=== PATIENT | male | born 1965 | race Caucasian/White ===

== ENCOUNTER 2023-05-18 06:40 | Emergency (ER) | payer OTHER, SELFPAY ==
[2023-05-18 06:45] VITALS: BP 164/75; PULSE 89; RESP 16; TEMP 36.4; O2SAT 97
--- NOTE | 2023-05-18 07:23 | XR_ITS ---
[facility] [id number] Patient Name: TANA CHRIS MRN: [id number] date: 1965 Sex: M Assigned Patient Location: ER Current Patient Location: ER Accession/Order Number: [id number] Exam Date: 05/18/2023 07:33 Report Date: 05/18/2023 08:03 At the request of: YULIA FLORES Procedure: XR femur RT 2V EXAM: Right femur HISTORY: . pain, twisted . COMPARISON: None. TECHNIQUE: 4 views FINDINGS: No fracture or bony destructive process is noted involving the right femur. Surrounding soft tissues are unremarkable. XR/XR femur RT 2V IMPRESSION: Negative right femur. Electronically authenticated by: KRIS BREAUX Date: 05/18/2023 08:03
--- NOTE | 2023-05-18 07:23 | XR_ITS ---
The [address] [address] Patient Name: TANA CHRIS MRN: [id number] date: 1965 Sex: M Assigned Patient Location: ER Current Patient Location: ER Accession/Order Number: [id number] Exam Date: 05/18/2023 07:33 Report Date: 05/18/2023 08:02 At the request of: YULIA FLORES Procedure: XR knee RT 3V EXAM: Right knee HISTORY: . twisted, pain . COMPARISON: None. TECHNIQUE: 3 views FINDINGS: No fracture or dislocation of the right knee is noted. Small spurs are noted involving the knee joint as well as the patellofemoral joint. Surrounding soft tissues are unremarkable. XR/XR knee RT 3V IMPRESSION: 1. No acute bony abnormality of the right knee. 2. Early arthritic changes of the right knee. Electronically authenticated by: KRIS BREAUX Date: 05/18/2023 08:02
--- NOTE | 2023-05-18 07:24 | ED.LOWEXI1 ---
HPI - Extremity Injury (Lower) General Chief Complaint: Extremity Injury, Lower Stated Complaint: r thigh injury fall Time Seen by Provider: 05/18/23 07:10 Source: patient Mode of arrival: Wheelchair Limitations: no limitations History of Present Illness HPI Narrative: 58-year-old male presents for right thigh and knee pain. Just before coming into the emergency department he was walking downstairs and his leg twisted and he had sudden onset of pain. He points to the distal right thigh to indicate area of most pain. He did not fall. He doesn't have pain in his hip but the pain goes into his right knee. Right ankle and foot do not hurt. The pain is moderate and it feels swollen to him. Related Data Previous Rx's Medication Instructions Recorded acetaminophen 300 mg-codeine 30 mg 1 tab PO Q6H PRN pain 5 days #20 05/18/23 tablet tabs ibuprofen 800 mg tablet 800 mg PO Q8H PRN pain #20 tabs 05/18/23 Allergies Allergy/AdvReac Type Severity Reaction Status Date / Time No Known Drug Allergies Allergy Verified 05/18/23 06:51 Review of Systems ROS Narrative A ten point review of systems is negative except as noted above. PFSH PFSH Social History Smoking status: Never smoker Exam Narrative Exam Narrative: Nurses note and vital signs reviewed and patient is not hypoxic. General: The patient appears well and in no apparent distress. Patient is resting comfortably on cart. Skin: Warm, dry, no pallor noted. There is no rash noted. Head: Normocephalic, atraumatic Eye: Normal conjunctiva, no drainage Ears, Nose, Mouth, and Throat: oral mucosa is moist. Nares patent. Cardiovascular: Regular Rate and Rhythm Respiratory: Patient is in no distress, no accessory muscle use, lungs are clear to auscultation, no wheezing, rales or rhonchi Back: non-tender GI: nontender Musculoskeletal: the right foot and ankle are nontender. His right knee is mildly swollen compared to contralateral and he has tenderness in the distal right side. The right hip is nontender. Skin intact, no bruising. Neurological: A&O, normal speech Psychiatric: Cooperative Constitutional Vital Signs, click to edit/add: Last Vital Signs Temp 97.5 F L 05/18/23 06:45 Pulse 89 05/18/23 06:45 Resp 16 05/18/23 06:45 BP 164/75 H 05/18/23 06:45 Pulse Ox 97 05/18/23 06:45 O2 Del Method Room Air 05/18/23 06:45 Course Vital Signs Vital signs: Vital Signs Temperature 97.5 F L 05/18/23 06:45 Pulse Rate 89 05/18/23 06:45 Respiratory Rate 16 05/18/23 06:45 Blood Pressure 164/75 H 05/18/23 06:45 Pulse Oximetry 97 05/18/23 06:45 Oxygen Delivery Method Room Air 05/18/23 06:45 Temperature 97.5 F L 05/18/23 06:45 Pulse Rate 89 05/18/23 06:45 Respiratory Rate 16 05/18/23 06:45 Blood Pressure 164/75 H 05/18/23 06:45 Pulse Oximetry 97 05/18/23 06:45 Oxygen Delivery Method Room Air 05/18/23 06:45 MDM - Extremity Injury (Lower) MDM Narrative Medical decision making narrative: x-rays per radiologist show no acute findings. Johny wrap applied and application checked by me and found to be appropriate, he is neurovascularly intact. He is also given crutches and prescriptions for pain medication and is being referred to orthopedics. The importance of follow-up was discussed. Differential Diagnosis Differential diagnosis: Likely acute internal derangement of knee and fracture of femur Imaging Data right knee, right femur x-rays: Radiologist's impression: Procedure: XR knee RT 3V EXAM: Right knee HISTORY: . twisted, pain . COMPARISON: None. TECHNIQUE: 3 views FINDINGS: No fracture or dislocation of the right knee is noted. Small spurs are noted involving the knee joint as well as the patellofemoral joint. Surrounding soft tissues are unremarkable. IMPRESSION: 1. No acute bony abnormality of the right knee. 2. Early arthritic changes of the right knee. Electronically authenticated by: KRIS BREAUX Date: 05/18/2023 08:02 Procedure: XR femur RT 2V EXAM: Right femur HISTORY: . pain, twisted . COMPARISON: None. TECHNIQUE: 4 views FINDINGS: No fracture or bony destructive process is noted involving the right femur. Surrounding soft tissues are unremarkable. IMPRESSION: Negative right femur. Electronically authenticated by: KRIS BREAUX Date: 05/18/2023 08:03 Discharge Plan Discharge Chief Complaint: Extremity Injury, Lower Clinical Impression: Acute pain of right lower extremity Patient Disposition: Home, Self-Care Time of Disposition Decision: 08:14 Condition: Good Mode of Transportation: Private Vehicle Prescriptions / Home Meds: New acetaminophen-codeine 300-30 mg tablet 1 tab PO Q6H PRN (Reason: pain) 5 Days Qty: 20 0RF ibuprofen 800 mg tablet 800 mg PO Q8H PRN (Reason: pain) Qty: 20 0RF Additional Instructions: F/U with Dr Guerrero Stand Alone Forms: Portal Instructions Referrals: Mark Haskins DO [Primary Care Provider] - 1 week
== END 2023-05-18 08:37 | disposition home or self-care (01) ==
PROVIDERS: Emergency Provider Emergency Medicine; PCP Internal Medicine
DX: M79.604 Pain in right leg (principal)
CPT/HCPCS: 73552; 73562; 99284

== ENCOUNTER 2023-05-24 09:27 | Outpatient (OUT) | payer OTHER, SELFPAY ==
--- NOTE | 2023-05-24 09:40 | MR_ITS ---
[facility] [id number] Patient Name: TANA CHRIS MRN: [id number] date: 1965 Sex: M Assigned Patient Location: MRI Current Patient Location: MRI Accession/Order Number: [id number] Exam Date: 05/24/2023 09:50 Report Date: 05/24/2023 11:07 At the request of: MELINA FORD Procedure: MR knee RT wo con MR knee RT wo con, 05/24/2023 9:50 AM EDT INDICATION: Acute Pain Of Right Knee M25.561 COMPARISON: X-ray of the right knee 05/18/2023 TECHNIQUE: Multiplanar and multisequential MR images of the right knee were obtained without contrast. FINDINGS: Meniscus: There is a vertical tear in the posterior horn of the medial meniscus. No definite abnormality of lateral meniscus is noted. No abnormality of meniscal roots is noted. Ligaments: The ACL, PCL, LCL, MCL are unremarkable. Edema along the iliotibial tract suggesting of iliotibial track friction syndrome. Cartilage: There is focal fissuring and partial-thickness defect (less than 50%) in the femoral condyles and medial tibial plateau and lateral facet of patella. The remainder of cartilages are unremarkable for age. Bone: There is no bone marrow edema. No osseus lesion. No acute fracture or dislocation. Muscles and tendons: The visualized portions of muscles and its tendons are unremarkable. There is increased intra-articular joint effusion with extension to the suprapatellar bursa. Large prepatellar bursitis is noted. MR/MR knee RT wo con IMPRESSION: Large prepatellar bursitis. Vertical tear in the posterior horn of the medial meniscus with mild degenerative changes in the medial compartment. Iliotibial friction syndrome. Electronically authenticated by: ELIAZAR VARGAS Date: 05/24/2023 11:07
== END 2023-05-24 09:28 | disposition home or self-care (01) ==
LOC: MRI 09:27
PROVIDERS: PCP Internal Medicine; Visit Provider Orthopaedic Surgery
DX: M25.561 Pain in right knee (principal); M70.41 Prepatellar bursitis, right knee; S83.241A Other tear of medial meniscus, current injury, right knee, initial encounter; M76.31 Iliotibial band syndrome, right leg
CPT/HCPCS: 73721